=== PATIENT | female | born 1975 | race Caucasian/White ===

== ENCOUNTER 2017-10-06 14:24 | Emergency (ER) | payer BC ==
--- NOTE | 2017-10-06 15:00 | ED ---
General Adult HPI - General Chief complaint: Chest Pain Stated complaint: Chest pressure Time Seen by Provider: 10/06/17 14:25 Source: patient, RN notes reviewed Mode of arrival: ambulatory - History of Present Illness Initial comments: This is a 42-year-old female who presents emergency Department with a history of fluttering in her chest as well as mitral valve regurgitation. Patient comes in today because she had some fluttering yesterday that lasted 3-4 seconds and she hasn't had it since but since then she has felt a little dizzy. Patient denies any chest pain or pressure. Patient denies any difficulty breathing shortest breath per patient denies any recent fever chills or cough. Patient denies abdominal pain patient denies nausea vomiting diarrhea. Patient denies any headache patient denies any near syncopal episode. Patient states she just feels a little dizzy at this time and is worried that is connected to her fluttering yesterday - Related Data Home Medications Medication Instructions Recorded Confirmed Norethindrone-E.estradiol-Iron 1 each PO DAILY 10/06/17 10/06/17 [Microgestin Fe 1-20 Tablet] Allergies Allergy/AdvReac Type Severity Reaction Status Date / Time No Known Allergies Allergy Verified 10/06/17 15:40 Review of Systems ROS Statement: Those systems with pertinent positive or pertinent negative responses have been documented in the HPI. ROS Other: All systems not noted in ROS Statement are negative. Past Medical History Additional Past Medical History / Comment(s): Heart valve issue. History of Any Multi-Drug Resistant Organisms: None Reported Past Surgical History: No Surgical Hx Reported Past Psychological History: No Psychological Hx Reported Smoking Status: Never smoker Past Alcohol Use History: Daily Past Drug Use History: None Reported General Exam - General Exam Comments Initial Comments: GENERAL: Patient is well-developed and well-nourished. Patient is nontoxic and well- hydrated and is in mild distress. ENT: Neck is soft and supple. No significant lymphadenopathy is noted. Oropharynx is clear. Moist mucous membranes. Neck has full range of motion without eliciting any pain. EYES: The sclera were anicteric and conjunctiva were pink and moist. Extraocular movements were intact and pupils were equal round and reactive to light. Eyelids were unremarkable. PULMONARY: Unlabored respirations. Good breath sounds bilaterally. No audible rales rhonchi or wheezing was noted. CARDIOVASCULAR: There is a regular rate and rhythm without any murmurs gallops or rubs. ABDOMEN: Soft and nontender with normal bowel sounds. SKIN: Skin is clear with no lesions or rashes and otherwise unremarkable. NEUROLOGIC: Patient is alert and oriented x3. Cranial nerves II through XII are grossly intact. Motor and sensory are also intact. Normal speech, volume and content. Symmetrical smile. MUSCULOSKELETAL: Normal extremities with adequate strength and full range of motion. LYMPHATICS: No significant lymphadenopathy is noted PSYCHIATRIC: Normal psychiatric evaluation. Course Vital Signs 10/06/17 10/06/17 14:27 15:50 Temperature 97.9 F Pulse Rate 110 H 84 Respiratory 22 18 Rate Blood Pressure 185/91 120/71 O2 Sat by Pulse 100 98 Oximetry Medical Decision Making - Medical Decision Making EKG shows a normal sinus rhythm at 84 bpm AL interval 246 QRS 70 QT interval is 370 QTC is 437. Patient's EKG shows no ST segment elevation or depression or T wave abnormalities are noted. - Lab Data Result diagrams: 10/06/17 14:50 10/06/17 14:50 Lab Results 10/06/17 10/06/17 10/06/17 Range/Units 14:50 14:50 14:50 WBC 7.6 (3.8-10.6) k/uL RBC 4.65 (3.80-5.40) m/uL Hgb 14.2 (11.4-16.0) gm/dL Hct 42.9 (34.0-46.0) % MCV 92.2 (80.0-100.0) fL MCH 30.5 (25.0-35.0) pg MCHC 33.1 (31.0-37.0) g/dL RDW 11.6 (11.5-15.5) % Plt Count 283 (150-450) k/uL Neutrophils % 75 % Lymphocytes % 19 % Monocytes % 4 % Eosinophils % 1 % Basophils % 0 % Neutrophils # 5.7 (1.3-7.7) k/uL Lymphocytes # 1.5 (1.0-4.8) k/uL Monocytes # 0.3 (0-1.0) k/uL Eosinophils # 0.1 (0-0.7) k/uL Basophils # 0.0 (0-0.2) k/uL PT (9.0-12.0) sec INR (<1.2) APTT (22.0-30.0) sec Sodium 142 (137-145) mmol/L Potassium 3.8 (3.5-5.1) mmol/L Chloride 104 (98-107) mmol/L Carbon Dioxide 25 (22-30) mmol/L Anion Gap 13 mmol/L BUN 9 (7-17) mg/dL Creatinine 0.80 (0.52-1.04) mg/dL Est GFR (MDRD) Af Amer >60 (>60 ml/min/1.73 sqM) Est GFR (MDRD) Non-Af >60 (>60 ml/min/1.73 sqM) Glucose 138 H (74-99) mg/dL Calcium 9.7 (8.4-10.2) mg/dL Magnesium 2.0 (1.6-2.3) mg/dL Total Bilirubin 1.3 (0.2-1.3) mg/dL AST 23 (14-36) U/L ALT 27 (9-52) U/L Alkaline Phosphatase 53 (38-126) U/L Total Creatine Kinase 52 (30-135) U/L CK-MB (CK-2) 0.2 (0.0-2.4) ng/mL CK-MB (CK-2) Rel Index 0.4 Troponin I <0.012 (0.000-0.034) ng/mL Total Protein 7.6 (6.3-8.2) g/dL Albumin 4.7 (3.5-5.0) g/dL 10/06/17 Range/Units 14:50 WBC (3.8-10.6) k/uL RBC (3.80-5.40) m/uL Hgb (11.4-16.0) gm/dL Hct (34.0-46.0) % MCV (80.0-100.0) fL MCH (25.0-35.0) pg MCHC (31.0-37.0) g/dL RDW (11.5-15.5) % Plt Count (150-450) k/uL Neutrophils % % Lymphocytes % % Monocytes % % Eosinophils % % Basophils % % Neutrophils # (1.3-7.7) k/uL Lymphocytes # (1.0-4.8) k/uL Monocytes # (0-1.0) k/uL Eosinophils # (0-0.7) k/uL Basophils # (0-0.2) k/uL PT 9.8 (9.0-12.0) sec INR 1.0 (<1.2) APTT 23.2 (22.0-30.0) sec Sodium (137-145) mmol/L Potassium (3.5-5.1) mmol/L Chloride (98-107) mmol/L Carbon Dioxide (22-30) mmol/L Anion Gap mmol/L BUN (7-17) mg/dL Creatinine (0.52-1.04) mg/dL Est GFR (MDRD) Af Amer (>60 ml/min/1.73 sqM) Est GFR (MDRD) Non-Af (>60 ml/min/1.73 sqM) Glucose (74-99) mg/dL Calcium (8.4-10.2) mg/dL Magnesium (1.6-2.3) mg/dL Total Bilirubin (0.2-1.3) mg/dL AST (14-36) U/L ALT (9-52) U/L Alkaline Phosphatase (38-126) U/L Total Creatine Kinase (30-135) U/L CK-MB (CK-2) (0.0-2.4) ng/mL CK-MB (CK-2) Rel Index Troponin I (0.000-0.034) ng/mL Total Protein (6.3-8.2) g/dL Albumin (3.5-5.0) g/dL Disposition Clinical Impression: Palpitation Disposition: HOME SELF-CARE Condition: Good Instructions: Palpitations (ED) Referrals: Jonny Augustin DO [Primary Care Provider] - 1-2 days Time of Disposition: 16:24
[2017-10-06] MEDS ORDERED: hydrALAZINE HCL 20 MG/ML 1 ML VIAL IVP STA (15:02)
[2017-10-06 15:06] LABS: Basophils % (A) 0 %; Eosinophils # (A) 0.1 k/uL (0-0.7); Eosinophils % (A) 1 %; HCT 42.9 % (34.0-46.0); HGB 14.2 gm/dL (11.4-16.0); Lymphocytes # (A) 1.5 k/uL (1.0-4.8); Lymphocytes % (A) 19 %; MCH 30.5 pg (25.0-35.0); MCHC 33.1 g/dL (31.0-37.0); MCV 92.2 fL (80.0-100.0); Mean Platelet Volume 7.6; Monocytes # (A) 0.3 k/uL (0-1.0); Monocytes % (A) 4 %; Neutrophils # (A) 5.7 k/uL (1.3-7.7); Neutrophils % (A) 75 %; Platelet Count 283 k/uL (150-450); RBC 4.65 m/uL (3.80-5.40); RDW 11.6 % (11.5-15.5); WBC 7.6 k/uL (3.8-10.6)
[2017-10-06 15:15] LABS: Partial Thromboplastin Time 23.2 sec (22.0-30.0); Prothrombin Time 9.8 sec (9.0-12.0)
[2017-10-06 15:20] LABS: ALT 27 U/L (9-52); AST 23 U/L (14-36); Albumin 4.7 g/dL (3.5-5.0); Alkaline Phosphatase 53 U/L (38-126); Anion Gap 13 mmol/L; Blood Urea Nitrogen 9 mg/dL (7-17); Calcium 9.7 mg/dL (8.4-10.2); Carbon Dioxide 25 mmol/L (22-30); Chloride 104 mmol/L (98-107); Glucose 138 mg/dL (74-99); Potassium 3.8 mmol/L (3.5-5.1); Sodium 142 mmol/L (137-145); Total Bilirubin 1.3 mg/dL (0.2-1.3); Total Protein 7.6 g/dL (6.3-8.2)
[2017-10-06 15:30] LABS: Creatine Kinase 52 U/L (30-135)
[2017-10-06 15:43] LABS: Creatine Kinase MB 0.2 ng/mL (0.0-2.4)
--- NOTE | 2017-10-06 15:53 | XR ---
EXAMINATION TYPE: XR chest 2V DATE OF EXAM: 10/06/2017 COMPARISON: NONE INDICATION: Chest pain TECHNIQUE: Frontal and lateral views of the chest are obtained. FINDINGS: The heart size is normal. The pulmonary vasculature is normal. The lungs are clear. IMPRESSION: 1. No acute pulmonary process.
[2017-10-06 16:01] LABS: Troponin I <0.012 ng/mL (0.000-0.034)
[2017-10-06 16:34] VITALS: BP 124/74; PULSE 83; RESP 16; TEMP 97.8
== END 2017-10-06 16:54 | disposition home or self-care (01) ==
LOC: EC 14:24
DX: R00.2 Palpitations (principal); Z53.8 Procedure and treatment not carried out for other reasons; Z79.3 Long term (current) use of hormonal contraceptives
CPT/HCPCS: 36415; 71046; 80053; 82550; 82553; 83735; 84484; 85025; 85610; 85730; 93005; 99285

== ENCOUNTER → 2017-11-06 | Outpatient (CLI) | payer BC ==
[2017-11-06 14:14] LABS: Basophils % (A) 0 %; Eosinophils % (A) 1 %; HCT 41.7 % (34.0-46.0); HGB 13.7 gm/dL (11.4-16.0); Lymphocytes % (A) 25 %; MCV 90.8 fL (80.0-100.0); Monocytes # (A) 0.4 k/uL (0-1.0); Monocytes % (A) 5 %; Neutrophils # (A) 5.4 k/uL (1.3-7.7); Neutrophils % (A) 68 %; Platelet Count 268 k/uL (150-450); RBC 4.59 m/uL (3.80-5.40); RDW 11.9 % (11.5-15.5)
== END | disposition home or self-care (01) ==
LOC: LABPAT 13:15
PROVIDERS: ATTEND Obstetrics & Gynecology
DX: Z01.812 Encounter for preprocedural laboratory examination (principal); R87.613 High grade squamous intraepithelial lesion on cytologic smear of cervix (HGSIL)
CPT/HCPCS: 36415; 85025

== ENCOUNTER 2017-11-13 07:12 | Day surgery (SDC) | payer BC ==
[2017-11-07 15:32] VITALS: BMI 26.2
[~2017-11-13 07:12] MED LIST: DEXAMETHASONE SOD PHOSPHATE 10 MG/ML 1 ML VIAL IV ONE; HYDROmorphone 0.5 MG/0.5 ML SYRINGE IVP PRN; LACTATED RINGERS 1,000 ML IV SCH; MIDAZOLAM 2 MG/2 ML VIAL IV PRN; ONDANSETRON 4 MG/2 ML VIAL IVP ONE; Pre Op ABX Message 1 EACH MISC MISCELLANE ONE
[2017-11-13] MEDS ORDERED: LIDOCAINE 1% 20 ML VIAL (10MG/ML) FOR IV START INTRADERMA ONE (07:47)
[2017-11-13] MEDS ORDERED: MIDAZOLAM 2 MG/2 ML VIAL ONE (08:30)
[2017-11-13] MEDS ORDERED: fentaNYL (PF) 50 MCG/ML 2 ML AMP ONE (08:30)
[2017-11-13] MEDS ORDERED: KETOROLAC 30 MG/ML 1 ML VIAL ONE (08:30)
[2017-11-13] MEDS ORDERED: PROPOFOL 10 MG/ML 20 ML VIAL IV ONE (08:30)
[2017-11-13] MEDS ORDERED: LIDOCAINE 1% INJ 10MG/ML (20 ML MDV) ONE (08:30)
[2017-11-13] MEDS ORDERED: SUCCINYLCHOLINE CHLORIDE 100 MG/5 ML SYR IV ONE (08:30)
[2017-11-13] MEDS ORDERED: VASOPRESSIN 20 UNIT/ML 1 ML VIAL SQ ONE (08:47)
--- NOTE | 2017-11-13 08:58 | P.OP ---
Date of Procedure: 11/13/17 Preoperative Diagnosis: High-grade MIKE on ECC Postoperative Diagnosis: Pathology pending Procedure(s) Performed: Cold knife conization, ECC Anesthesia: GETA Surgeon: Rachel Hawk Estimated Blood Loss (ml): 5 IV fluids (ml): 400 Urine output (ml): 25 Pathology: other (Cervical conization specimen, endocervical curettings) Condition: stable Disposition: PACU Description of Procedure: Patient is brought to the operating suite where a general anesthetic is administered without difficulty. She's placed in the dorsal lithotomy position. The appropriate timeout is performed to assure proper patient and procedural identification. Urine hCG is negative. Antibiotics are not deemed necessary. Examination under anesthesia reveals a small anteverted uterus, negative adnexa bilaterally. The cervix, vagina, perineal areas are all prepped and draped in usual sterile fashion. Weighted speculum was placed into the vagina. Bladder is drained for approximately 25 mL of concentrated urine. Anterior lip of the cervix is grasped with a double-tooth tenaculum. Cervix is injected circumferentially, 2.5 mL of 1% lidocaine without epinephrine, at 2:00, 4:00, 8:00, and 10:00. A total of 10 mL is used. Stay sutures of 0 Vicryl are then placed on the cervix to aid in hemostasis, from 2 to 4:00, tied and held laterally, and from 8 to 10: 00, tied and held laterally. Scalpel is then used and the conization specimen is procured. Care is taken to keep the specimen deep, in order to capture all the abnormal endocervical cells. Endocervical curettage is then vigorously performed on the remaining endocervix, and sent under separate cover to pathology for evaluation. The electrocautery with ball tip is then used to thoroughly cauterize the remaining stump, both internally and externally. Hemostasis is excellent. The stay sutures are removed. Cervix is clean and dry. All sponge needle and instrument counts are correct. Patient is brought back to the recovery room in very good condition with stable vital signs including blood pressure 111/66, pulse 67, 100% O2 saturation. Toradol is given prior to leaving the operative suite.
[2017-11-13 09:15] VITALS: TEMP 98
[2017-11-13 09:26] VITALS: RESP 16
[2017-11-13 10:21] VITALS: BP 131/78; PULSE 72
== END 2017-11-13 10:43 | disposition home or self-care (01) ==
LOC: OR 07:12
PROVIDERS: ATTEND Obstetrics & Gynecology
DX: D06.9 Carcinoma in situ of cervix, unspecified (principal); D06.0 Carcinoma in situ of endocervix; Z85.41 Personal history of malignant neoplasm of cervix uteri; Z80.3 Family history of malignant neoplasm of breast; K21.9 Gastro-esophageal reflux disease without esophagitis; Z79.3 Long term (current) use of hormonal contraceptives; Z79.899 Other long term (current) drug therapy
CPT/HCPCS: 81025; 88305; 88307; 57520; J2250; J1100; J2405; J2001; J3010; J1885; J0330; J2704; J1170

== ENCOUNTER → 2017-12-18 | Outpatient (CLI) | payer BC ==
[2017-12-18 14:01] LABS: Basophils % (A) 1 %; Eosinophils # (A) 0.1 k/uL (0-0.7); Eosinophils % (A) 1 %; HCT 39.6 % (34.0-46.0); HGB 13.6 gm/dL (11.4-16.0); Lymphocytes # (A) 1.6 k/uL (1.0-4.8); Lymphocytes % (A) 28 %; MCHC 34.3 g/dL (31.0-37.0); MCV 90.4 fL (80.0-100.0); Mean Platelet Volume 7.5; Monocytes # (A) 0.3 k/uL (0-1.0); Monocytes % (A) 6 %; Neutrophils # (A) 3.5 k/uL (1.3-7.7); Neutrophils % (A) 62 %; Platelet Count 291 k/uL (150-450); RBC 4.38 m/uL (3.80-5.40); RDW 12.4 % (11.5-15.5); WBC 5.6 k/uL (3.8-10.6)
[2017-12-18 14:27] LABS: Blood Urea Nitrogen 12 mg/dL (7-17); Glucose 83 mg/dL (74-99)
== END | disposition home or self-care (01) ==
LOC: LABPAT 13:35
PROVIDERS: ATTEND Obstetrics & Gynecology
DX: Z01.812 Encounter for preprocedural laboratory examination (principal); D06.9 Carcinoma in situ of cervix, unspecified
CPT/HCPCS: 36415; 82565; 82947; 84520; 85025; 86850; 86900; 86901; 87086

== ENCOUNTER 2017-12-26 06:55 | Day surgery (SDC) | payer BC ==
[2017-12-19 10:33] VITALS: BMI 26.6
--- NOTE | 2017-12-21 10:37 | HP ---
HISTORY AND PHYSICAL This is an history and physical for surgery on 12/26/2017. This is a 42-year-old white female 0 who presents for definitive surgery regarding high-grade squamous intraepithelial lesion noted globally on a conization specimen, along with positive endocervical curettage. Risks and benefits of the procedure have been discussed with the patient at length. All questions answered. 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 Positive as well. PAST SURGICAL HISTORY: Colposcopy and conization, endometrial biopsy, tonsillectomy, and wisdom teeth extracted. ALLERGIES: None known. CURRENT MEDICATIONS: Multivitamin daily, Valtrex as needed, control pill daily, Magnolia daily. FAMILY HISTORY: Significant for breast cancer, cervical cancer, CVA, Parkinson disease, skin cancer, and thyroid disease. REPRODUCTIVE HISTORY: Menarche began at the age of 11, monthly withdrawal flows on control pills. Patient has never had a child and declines the wish for childbearing at this time. 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 Social alcohol use. PHYSICAL EXAMINATION: On exam, this is a pleasant white female, she is 5 feet 5 inches, 161 pounds, BMI 26. Vital signs are stable and the patient is afebrile. Blood pressure 108/82. HEENT examination is negative, good dentition, no thyromegaly, no cervical lymphadenopathy. Breasts are bilaterally symmetric with no skin dimpling, nipple discharge, axillary adenopathy or discernible lesions or masses. Chest is clear to auscultation in all perea anteriorly and posteriorly. Cardiac exam reveals regular rate and rhythm with no murmur, click, or rub. Abdomen is soft, nontender, no organosplenomegaly, no CVA tenderness. Extremities reveal no edema. On pelvic exam, the external genitalia is well estrogenized. Cervix has evidence of recent conization. Uterus is small, anteverted, anteflexed, mobile, smooth, and nontender. Adnexa are negative to palpation bilaterally, mobile and smooth. Rectal exam reveals FIT negative stool sample, good rectal tone, no masses. IMPRESSION: High-grade squamous intraepithelial lesion of the cervix globally, despite wide margin cold knife conization. Positive endocervical curettage specimen. PLAN: We will proceed with vaginal hysterectomy. The risks, benefits, and alternatives of this have been discussed in detail. She understands the risk of bleeding, infection, perforation or damage to bowel, bladder, ureters, blood vessels, the risk of postoperative dyspareunia, the risk of anesthesia as well. All questions answered, second opinion offered and declined. We will proceed with a vaginal hysterectomy for Lorraine Childs at the hospital as detailed above. MMODL / IJN: [id number] /
[~2017-12-26 06:55] MED LIST changes: -HYDROmorphone 0.5 MG/0.5 ML SYRINGE IVP PRN; -LACTATED RINGERS 1,000 ML IV SCH; +LIDOCAINE 1% 20 ML VIAL (10MG/ML) FOR IV START INTRADERMA PRN; -MIDAZOLAM 2 MG/2 ML VIAL IV PRN; -ONDANSETRON 4 MG/2 ML VIAL IVP ONE; +ONDANSETRON ODT 4 MG TAB PO ONE; -Pre Op ABX Message 1 EACH MISC MISCELLANE ONE; +SCOPOLAMINE 1.5MG/72HR PATCH TRANSDERM ONE; +ceFAZolin IN SWFI 2 GM/20 ML SYRINGE IVP ONE
[2017-12-26] MEDS ORDERED: VASOPRESSIN 20 UNIT/ML 1 ML VIAL SQ ONE ×2 (07:52→09:40)
[2017-12-26] MEDS ORDERED: BACITRACIN 500 UNIT/GM OINT 28.4 GM TUBE TOPICAL ONE ×2 (07:53→09:40)
[2017-12-26] MEDS: LACTATED RINGERS 1,000 ML IV SCH (08:04)
[2017-12-26] MEDS ORDERED: ONDANSETRON 4 MG/2 ML VIAL IVP ONE (08:18)
[2017-12-26] MEDS: fentaNYL (PF) 50 MCG/ML 2 ML AMP IV ONE ×3 (08:22→11:06)
[2017-12-26] MEDS ORDERED: MIDAZOLAM 2 MG/2 ML VIAL IV ONE (08:22)
[2017-12-26] MEDS ORDERED: diphenhydrAMINE 50 MG/ML 1 ML VIAL IVP PRN ×2 (08:38→10:26)
[2017-12-26] MEDS ORDERED: PROMETHAZINE INJ 3.125 MG in SODIUM CHLORIDE 0.9% 50 ML IVPB PRN (08:38)
[2017-12-26] MEDS ORDERED: NALOXONE 0.4 MG/ML 1 ML VIAL IV PRN (08:38)
[2017-12-26] MEDS ORDERED: NALBUPHINE 10 MG/ML AMPUL IV PRN (08:38)
[2017-12-26] MEDS ORDERED: MORPHINE SULFATE 4 MG/0.8 ML SYRINGE (INJ) IVP PRN (08:38)
[2017-12-26] MEDS ORDERED: fentaNYL (PF) 50 MCG/ML 2 ML AMP ONE (09:22)
[2017-12-26] MEDS ORDERED: MIDAZOLAM 2 MG/2 ML VIAL ONE (09:22)
[2017-12-26] MEDS ORDERED: SUCCINYLCHOLINE CHLORIDE 100 MG/5 ML SYR IV ONE (09:22)
[2017-12-26] MEDS ORDERED: LIDOCAINE 1% INJ 10MG/ML (20 ML MDV) ONE (09:22)
--- NOTE | 2017-12-26 10:25 | P.OP ---
Date of Procedure: 12/26/17 Preoperative Diagnosis: Global high grade squamous intraepithelial lesion, positive margins on cold knife conization and positive ECC Postoperative Diagnosis: Pathology pending Procedure(s) Performed: Vaginal hysterectomy Anesthesia: SERVANDOA Surgeon: Rachel Hawk Airline Pilot/First Officer #1: Shaun Guillermo Estimated Blood Loss (ml): 50 IV fluids (ml): 500 Urine output (ml): 300 Pathology: other (Cervix and uterus) Condition: stable Disposition: PACU Operative Findings: Normal-appearing ovaries, well suspended, bilaterally Description of Procedure: Patient is brought to the operating suite where a general anesthetic is administered without difficulty. She's placed in the dorsal lithotomy position. The appropriate timeout is performed to assure proper patient and procedural identification. Antibiotics are given. Urine hCG is negative. Bladder is drained for approximately 300 mL of clear yellow urine. The cervix, vagina, perineal bodies are all prepped and draped in the usual sterile fashion. The anterior lip of the cervix is grasped with a double-tooth tenaculum. The cervix is injected circumferentially with a dilute Pitressin solution. A [place] blade scalpel is used to incise the mucosa circumferentially , with a V like positioning in the back. Sponge rolled finger is used to sweep the mucosa from the underlying plane. The peritoneum is entered at 6:00, suture tied with 2-0 Vicryl and held with a hemostat. The large billed speculum is then placed into the peritoneal cavity. The right uterosacral cardinal ligament is identified, clamped and tied with 0 Vicryl suture and held laterally with a hemostat. The same is carried out on the other side. At all times the mucosa is swept well from the operative field to avoid bladder and/or ureteral injury. Uterine vasculature is identified, clamped cut and suture ligated. 2 additional pedicles are taken superior to the vessels. Anterior peritoneum is entered. Jordon clamps are used across the final pedicles. The specimen is removed and sent to pathology for evaluation. The pedicles are Jordon tied with 0 Vicryl suture for excellent hemostasis, flashed, and retied. A sponge stick is then used and both ovaries are identified, noted to be high in the peritoneal cavity, and within normal limits to inspection. The speculum is now changed to the shallow billed speculum. The 2-0 Vicryl suture previously placed at 6:00 is brought around in a circumferential fashion to close the peritoneal cavity. The uterosacral cardinal ligaments are then brought across to incorporate the opposite ligament as well as vaginal mucosa. 3 additional [id number] sutures of 0 Vicryl are used for final vaginal closure. The Burrell catheter is placed in the urine is noted to be yellow and clear. All sponge needle and enhancement counts are correct at the end of the procedure. Patient is brought back to the recovery room in very good condition with stable vital signs including 130/58 and a pulse of 70.
[2017-12-26] MEDS ORDERED: ZOLPIDEM 5 MG TAB PO PRN (10:26)
[2017-12-26] MEDS ORDERED: ONDANSETRON 4 MG/2 ML VIAL IVP PRN (10:26)
[2017-12-26] MEDS ORDERED: IBUPROFEN 600 MG TAB PO PRN (10:26)
[2017-12-26] MEDS ORDERED: SIMETHICONE 80 MG CHEWABLE PO PRN (10:26)
[2017-12-26] MEDS ORDERED: Acetaminophen-Codeine 300-30mg TAB PO PRN (10:26)
[2017-12-26] MEDS: KETOROLAC 30 MG/ML 1 ML VIAL IVP PRN ×2 (11:01→17:22)
[2017-12-26] MEDS: MORPHINE SULFATE 4 MG/0.8 ML SYRINGE (INJ) IV PRN ×2 (11:08→11:14)
[2017-12-27] MEDS: LACTATED RINGERS 1,000 ML IV SCH (07:31)
--- NOTE | 2017-12-27 07:44 | P.DS ---
Providers Date of admission: 12/26/17 Expected date of discharge: 12/27/17 Attending physician: Rachel Hawk Primary care physician: [facility] Course: This is a 42-year-old white female 0 who presented with a history of persistent severe dysplasia of the cervix, despite recent cold knife conization. All margins on the CKC were positive including positive ECC. After thorough discussion, patient has elected to proceed with vaginal hysterectomy. Risks and benefits of the surgery were thoroughly explained to the patient. Please see dictated history and physical for details. Patient presented yesterday for vaginal hysterectomy and did very well. She received a spinal with Duramorph. Ovaries appeared normal and therefore left in situ. Estimated blood loss 50 mL's. No unusual intraoperative findings, please see my dictated operative note for details. This morning the patient is doing well. She is voiding, ambulating, passing flatus without difficulty. Vital signs are stable and she is afebrile. Vaginal packing has been removed, Burrell catheter removed as well. She is passing flatus. She is tolerating regular diet. Pain is well managed. Patient is being discharged home today in very good condition. She will follow- up with me in the office in 2 weeks. I have reminded her no intercourse, tampons or douching. She will use [id number] Motrin products, 200 mg pills, 3 every 6 hours as needed for pain. I've asked her to call me with any fevers shakes or chills, bloody vaginal drainage, with any pain not alleviated by Motrin, with any unusual back pain, extremity issues, breathing problems, or indeed with any concerns. Patient Condition at Discharge: Good Plan - Discharge Summary Discharge Rx Participant: Yes New Discharge Prescriptions: No Action Norethindrone-E.estradiol-Iron [Junel Fe 1 mg-20 Mcg Tablet] 1 each PO QAM Cholecalciferol (Vitamin D3) [Vitamin D3] 2,000 unit PO DAILY Discharge Medication List Norethindrone-E.estradiol-Iron [Junel Fe 1 mg-20 Mcg Tablet] 1 each PO QAM 11/07 [History] Cholecalciferol (Vitamin D3) [Vitamin D3] 2,000 unit PO DAILY 12/19/17 [History] Follow up Appointment(s)/Referral(s): Rachel Hawk MD [STAFF PHYSICIAN] - 2 Weeks Discharge Disposition: HOME SELF-CARE
[2017-12-27 08:10] VITALS: BP 101/62; PULSE 81; RESP 17; TEMP 97.7
--- NOTE | 2017-12-27 09:30 | P.PN ---
Progress Note - Text Date: 12/27/2017 Time: 07 The patient is status post, vaginal hysterectomy Vital signs stable VAS: 0-10 Patient has no complaints of pain. The patient incurred some minimal itching yesterday, this itching is now subsiding. Pain meds to be managed by service.
== END 2017-12-27 09:55 | disposition home or self-care (01) ==
LOC: OR 06:55 → 4FBP 10:21 → OR 12-27 09:55
PROVIDERS: ATTEND Obstetrics & Gynecology
DX: D06.9 Carcinoma in situ of cervix, unspecified (principal); Z79.3 Long term (current) use of hormonal contraceptives; Z79.899 Other long term (current) drug therapy; Z87.891 Personal history of nicotine dependence; Z82.3 Family history of stroke; Z80.3 Family history of malignant neoplasm of breast; Z80.8 Family history of malignant neoplasm of other organs or systems
CPT/HCPCS: 81025; 88309; 58260; J2250; J1100; J2550; J2405; J2001; J3010; J1885; J0330; J2270; 86850; 86900; 86901

== ENCOUNTER → 2019-02-13 | Outpatient (CLI) | payer BC ==
--- NOTE | 2019-02-15 13:20 | MM ---
Reason for exam: screening (asymptomatic). Last mammogram was performed 3 years and 2 months ago. History: Patient is postmenopausal, has history of other cancer at age 42, and is nulliparous. Family history of breast cancer in paternal uncle at age 48. Physical Findings: A clinical breast exam by your physician is recommended on an annual basis and results should be correlated with mammographic findings. MG 3D Screening Mammo W/Cad Bilateral CC and MLO view(s) were taken. Prior study comparison: December 15, 2015, bilateral MG 3d screening mammo w/cad. December 16, 2013, mammogram, performed at [facility]. The breast tissue is heterogeneously dense. This may lower the sensitivity of mammography. No suspicious abnormality. No significant changes when compared with prior studies. ASSESSMENT: Negative, BI-RAD 1 RECOMMENDATION: Routine screening mammogram of both breasts in 1 year.
== END | disposition home or self-care (01) ==
LOC: RADMAMWWP 15:13
PROVIDERS: ATTEND Obstetrics & Gynecology
DX: Z12.31 Encounter for screening mammogram for malignant neoplasm of breast (principal); Z80.3 Family history of malignant neoplasm of breast
CPT/HCPCS: 77063; 77067

== ENCOUNTER 2019-12-27 17:29 | Emergency (ER) | payer BC ==
--- NOTE | 2019-12-27 18:11 | ED ---
Chest Pain HPI - General Chief Complaint: Chest Pain Stated Complaint: anxiety Time Seen by Provider: 12/27/19 17:42 Source: patient, RN notes reviewed, old records reviewed Mode of arrival: ambulatory Limitations: no limitations - History of Present Illness Initial Comments: This is a 44-year-old female to the ER with chest pain and COVID exposure. Adalberto morley is severe anxiety. 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 Patient admits to having anxiety over this matter. No fevers herself. No shortness of breath again she does admit to chest pain MD Complaint: chest pain, other (anxiety) -: days(s) Onset: during rest, during exertion Pain Location: left chest Severity: moderate Severity scale (1-10): 6 Quality: aching Consistency: intermittent Improves With: nothing Worsens With: exertion Anginal Symptoms: nausea, dyspnea Other Symptoms: cough Treatments Prior to Arrival: none - Related Data Home Medications Medication Instructions Recorded Confirmed Norethindrone-E.estradiol-Iron 1 each PO QAM 11/07/17 12/26/17 [Junel Fe 1 mg-20 Mcg Tablet] Cholecalciferol (Vitamin D3) 2,000 unit PO DAILY 12/19/17 12/19/17 [Vitamin D3] Allergies Allergy/AdvReac Type Severity Reaction Status Date / Time No Known Allergies Allergy Verified 12/27/19 17:39 Review of Systems ROS Statement: Those systems with pertinent positive or pertinent negative responses have been documented in the HPI. ROS Other: All systems not noted in ROS Statement are negative. EKG Findings - EKG Comments: EKG Findings:: EKG shows sinus rhythm of 77, KS 144 QRS 66 QTc 441 Past Medical History Additional Past Medical History / Comment(s): Heart valve issue. History of Any Multi-Drug Resistant Organisms: None Reported Past Surgical History: No Surgical Hx Reported Past Psychological History: No Psychological Hx Reported Smoking Status: Never smoker Past Alcohol Use History: Daily Past Drug Use History: None Reported General Exam Limitations: no limitations General appearance: alert, in no apparent distress Head exam: Present: atraumatic, normocephalic, normal inspection Eye exam: Present: normal appearance, PERRL, EOMI. Absent: scleral icterus, conjunctival injection, periorbital swelling ENT exam: Present: normal exam, mucous membranes moist Neck exam: Present: normal inspection. Absent: tenderness, meningismus, lymphadenopathy Respiratory exam: Present: normal lung sounds bilaterally. Absent: respiratory distress, wheezes, rales, rhonchi, stridor Cardiovascular Exam: Present: regular rate, normal rhythm, normal heart sounds. Absent: systolic murmur, diastolic murmur, rubs, gallop, clicks GI/Abdominal exam: Present: soft, normal bowel sounds. Absent: distended, tenderness, guarding, rebound, rigid Extremities exam: Present: normal inspection, full ROM, normal capillary refill. Absent: tenderness, pedal edema, joint swelling, calf tenderness Back exam: Present: normal inspection Neurological exam: Present: alert, oriented X3, CN II-XII intact Psychiatric exam: Present: normal affect, normal mood Skin exam: Present: warm, dry, intact, normal color. Absent: rash Course Vital Signs 12/27/19 12/27/19 17:34 19:38 Temperature 98.4 F 97 F L Pulse Rate 86 75 Respiratory 18 20 Rate Blood Pressure 165/92 127/85 O2 Sat by Pulse 98 97 Oximetry - Reevaluation(s) Reevaluation #1: Medical records reviewed Patient feeling better with anxiety control Patient informed of results been on his need to transfer: At this time with normal x-ray, patient can be discharged Chest Pain MDM - MDM 44 female with chest pain patient having severe anxiety believes that she has Kovic, exposed to both covert she is negative testing here in the ER and can be discharged Disposition Clinical Impression: Chest pain, Atypical chest pain Disposition: HOME SELF-CARE Condition: Good Instructions (If sedation given, give patient instructions): Chest Pain (ED) Is patient prescribed a controlled substance at d/c from ED?: No Referrals: Jonny Augustin DO [Primary Care Provider] - 1-2 days
[2019-12-27 18:55] LABS: Basophils % (A) 0 %; Eosinophils # (A) 0.1 k/uL (0-0.7); Eosinophils % (A) 1 %; HCT 41.5 % (34.0-46.0); HGB 14.1 gm/dL (11.4-16.0); Lymphocytes # (A) 1.4 k/uL (1.0-4.8); Lymphocytes % (A) 20 %; Mean Platelet Volume 8.4; Monocytes # (A) 0.3 k/uL (0-1.0); Monocytes % (A) 5 %; Neutrophils % (A) 73 %; Platelet Count 272 k/uL (150-450); RBC 4.42 m/uL (3.80-5.40); RDW 12.7 % (11.5-15.5); WBC 6.9 k/uL (3.8-10.6)
--- NOTE | 2019-12-27 19:03 | XR ---
EXAMINATION TYPE: XR chest 2V DATE OF EXAM: 12/27/2019 COMPARISON: 10/06/2017 INDICATION: Chest pain TECHNIQUE: Frontal and lateral views of the chest are obtained. FINDINGS: The heart size is normal. The pulmonary vasculature is normal. The lungs are clear. IMPRESSION: 1. No acute pulmonary process.
[2019-12-27 19:10] LABS: D-Dimer 0.25 mg/L FEU (<0.60); INR 0.9 (<1.2); Partial Thromboplastin Time 23.4 sec (22.0-30.0); Prothrombin Time 9.6 sec (9.0-12.0)
[2019-12-27 19:26] LABS: ALT 14 U/L (4-34); AST 22 U/L (14-36); African American GFR (CKD) >90 (>60 ml/min/1.73 sqM); Albumin 4.5 g/dL (3.5-5.0); Alkaline Phosphatase 71 U/L (38-126); Anion Gap 8 mmol/L; Blood Urea Nitrogen 10 mg/dL (7-17); Calcium 9.4 mg/dL (8.4-10.2); Carbon Dioxide 25 mmol/L (22-30); Chloride 105 mmol/L (98-107); Glucose 107 mg/dL (74-99); Magnesium 1.8 mg/dL (1.6-2.3); Non-African American GFR(CKD) >90 (>60 ml/min/1.73 sqM); Potassium 4.1 mmol/L (3.5-5.1); Sodium 138 mmol/L (137-145); Total Protein 7.1 g/dL (6.3-8.2)
[2019-12-27 19:39] VITALS: BP 127/85; PULSE 75; RESP 20; TEMP 97
== END 2019-12-27 19:57 | disposition home or self-care (01) ==
LOC: EC 17:29
DX: R07.89 Other chest pain (principal); R05 Cough; R11.0 Nausea; R06.00 Dyspnea, unspecified; F41.9 Anxiety disorder, unspecified
CPT/HCPCS: 36415; 71046; 80053; 83690; 83735; 83880; 84484; 85025; 85379; 85610; 85730; 93005; 99285

== ENCOUNTER → 2022-05-25 | Outpatient (CLI) | payer BC ==
--- NOTE | 2022-05-25 15:20 | MM ---
Reason for Exam: Clinical finding. Last mammogram was performed 3 year(s) and 3 month(s) ago. Indicated Problems: Pain of the left side (Focal) for 4 Month(s). Patient History: Menarche at age 10. Patient has no children. Hysterectomy at age 42. Postmenopausal. Other cancer, age 42. Paternal uncle had breast cancer, age 48. Risk Values: Veronica 5 year model risk: 1.0%. NCI Lifetime model risk: 10.2%. Prior Study Comparison: 12/16/2013 Screening Mammogram, [facility]. 12/15/2015 Bilateral Screening Mammogram, [facility]. 02/13/2019 Bilateral Screening Mammogram, [facility]. Tissue Density: The breast tissue is heterogeneously dense. This may lower the sensitivity of mammography. Findings: Analyzed By CAD. No evidence for mass or distortion. No suspicious appearing calcifications at this time. Overall Assessment: Benign, BI-RAD 2 Management: Screening Mammogram of both breasts in 1 year. A clinical breast exam by your physician is recommended on an annual basis and results should be correlated with mammographic findings. This exam should not preclude additional follow-up of suspicious palpable abnormalities. Results were given to the patient verbally at the time of exam. Electronically signed and approved by: Samy Hopson M.D. Radiologis
== END | disposition home or self-care (01) ==
LOC: RADMAMWWP 14:13
PROVIDERS: ATTEND Obstetrics & Gynecology
DX: N64.4 Mastodynia (principal)
CPT/HCPCS: 77062; 77066

== ENCOUNTER → 2023-05-09 | Outpatient (CLI) | payer BC ==
--- NOTE | 2023-05-10 09:27 | CT ---
EXAMINATION TYPE: CT abdomen pelvis w con DATE OF EXAM: 05/09/2023 COMPARISON: None HISTORY: RT side abdominal pain and discomfort. CT DLP: 770.90 mGycm Automated exposure control for dose reduction was used. CONTRAST: CT scan of the abdomen pelvis is performed with IV Contrast, patient injected with 100ml mL of Isovue 300. FINDINGS- LUNG BASES- bibasilar consolidation. LIVER/GB- liver somewhat low in attenuation and coarse may be in the basis of ectatic steatosis or hepatocellular disease. Liver measures 19 cm compatible mild atelectatic PANCREAS- No gross abnormality is seen. SPLEEN- No gross abnormality is seen. ADRENALS- No gross abnormality is seen. KIDNEYS/BLADDER- no hydronephrosis or nephrolithiasis. There is a sub-5 mm hypodensity within the lef t kidney too small to characterize.. BOWEL- no evidence of obstruction or inflammation. Mild wall thickening of the mid ascending right c olon. Appendix appears normal caliber. There is a small hiatal hernia LYMPH NODES- No greater than 1cm abdominal or pelvic lymph nodes are appreciated. OSSEOUS STRUCTURES- multilevel hypertrophic and degenerative changes spine. OTHER- aorta normal caliber. Small fat-containing umbilical hernia. Soft tissue nodules in the adnex a likely represent residual ovarian tissue correlate clinically. Findings suggest prior hysterectomy. Tarlov cyst setting. IMPRESSION- 1. Hepatomegaly correlate for hepatocellular disease or hepatic steatosis. 2. There is mild wall thickening of the right colon could be on the basis of peristalsis. Consider co lonoscopy and direct visualization to exclude mucosal lesion. No inflammatory changes 3. Post hysterectomy.
== END | disposition home or self-care (01) ==
LOC: RADCTMAIN 17:12
PROVIDERS: ATTEND Family Medicine
DX: K63.89 Other specified diseases of intestine (principal); R10.31 Right lower quadrant pain; R16.0 Hepatomegaly, not elsewhere classified; Z90.710 Acquired absence of both cervix and uterus
CPT/HCPCS: 74177; Q9967

== ENCOUNTER → 2024-07-16 | Outpatient (CLI) | payer BC ==
--- NOTE | 2024-07-22 11:38 | MM ---
Reason for Exam: Screening (asymptomatic). Last mammogram was performed 2 year(s) and 2 month(s) ago. Patient History: Menarche at age 10. Patient has no children. Hysterectomy at age 42. Postmenopausal. Other cancer, age 42. Paternal uncle had breast cancer, age 48. Risk Values: Veronica 5 year model risk: 1.1%. NCI Lifetime model risk: 9.9%. Prior Study Comparison: 12/15/2015 Bilateral Screening Mammogram, [facility]. 02/13/2019 Bilateral Screening Mammogram, [facility]. 05/25/2022 Bilateral MG 3D diag mammo w/cad [facility], [facility]. Tissue Density: The breasts are heterogeneously dense, which may obscure small masses. Findings: Analyzed By CAD. Right breast: There is no suspicious group of microcalcifications or new suspicious mass. Benign-appearing calcifications right breast. Left breast: There is no suspicious group of microcalcifications or new suspicious mass. Benign-appearing calcifications left breast. Overall Assessment: Benign, BI-RAD 2 Management: Screening Mammogram of both breasts in [address] [facility] will attempt to contact patient to return for supplemental views and ultrasound if indicated. Patient should continue monthly self-breast exams. A clinical breast exam by your physician is recommended on an annual basis. This exam should not preclude additional follow-up of suspicious palpable abnormalities. Note on Veronica scores and lifetime risk: 1. A Veronica score greater than 3% is considered moderate risk. If this is the case, consider specialist referral to assess eligibility for a risk reducing agent. 2. If overall lifetime risk for the development of breast cancer is 20% or higher, the patient may qualify for future screening with alternating mammogram and breast MRI. [facility], , 07/22/2024 11:34 AM. Electronically signed and approved by: Gigi Gómez DO
== END | disposition home or self-care (01) ==
LOC: RADMAMWWP 16:00
PROVIDERS: ATTEND Obstetrics & Gynecology Obstetrics
DX: Z12.31 Encounter for screening mammogram for malignant neoplasm of breast (principal); R92.333 Mammographic heterogeneous density, bilateral breasts; Z78.0 Asymptomatic menopausal state; Z80.3 Family history of malignant neoplasm of breast
CPT/HCPCS: 77063; 77067